=== PATIENT | female | born 1990 | race Caucasian/White ===

== ENCOUNTER 2024-02-26 09:47 | Emergency (ER) | payer OTHER ==
[~2024-02-26] VITALS: Ht 167.6 cm; Wt 91.0 kg
[2024-02-26 09:52] VITALS: O2SAT 99
[2024-02-26] MEDS: ONDANSETRON HCL 4MG/2ML INJ IV STA (10:43)
[2024-02-26] MEDS: KETOROLAC 30MG/ML VIAL IV STA (10:43)
[2024-02-26] MEDS: FAMOTIDINE 20MG/2ML VIAL IV STA (10:43)
[2024-02-26 10:44] LABS: CLARITY URINE CLEAR (CLEAR); COLOR URINE YELLOW (YELLOW); GLUCOSE URINE NEGATIVE (NEGATIVE); KETONES URINE 1+ (NEGATIVE); LEUKOCYTE ESTERASE URINE 3+ (NEGATIVE); NITRITE URINE NEGATIVE (NEGATIVE); OCCULT BLOOD URINE TRACE (NEGATIVE); PH URINE >=9.0 (4.5-8.0); PROTEIN URINE NEGATIVE (NEGATIVE); SPECIFIC GRAVITY URINE 1.015 (1.005-1.030); UROBILINOGEN URINE 0.2 E.U./dL (0.2-1.0)
[2024-02-26 10:52] LABS: BACTERIA URINE 2+; SQUAMOUS EPITHELIAL CELL URINE 2+ /lpf (RARE/1+); YEAST URINE NONE SEEN
[2024-02-26 10:56] LABS: HEMATOCRIT. 43.4 % (36.0-48.0); HEMOGLOBIN. 14.9 g/dL (12.0-16.0); MEAN CORPUSCULAR HEMOGLOBIN 29.6 pg (28.0-32.0); MEAN CORPUSCULAR HGB CONC 34.2 g/dL (31.0-37.0); MEAN CORPUSCULAR VOLUME 86.4 fL (81.0-99.0); MEAN PLATELET VOLUME 8.9 fl (7.4-10.4); PLATELET 277 x1000/uL (130-400); RED BLOOD CELL COUNT 5.02 mill/uL (4.2-5.4); RED CELL DISTRIBUTION WIDTH 13.2 % (11.6-14.6); WHITE BLOOD COUNT 13.2 x1000/uL (4.5-11.0)
[2024-02-26 10:57] LABS: DIFFERENTIAL COMMENT 1
[2024-02-26 11:01] LABS: HCG SCREEN NEGATIVE
[2024-02-26 11:05] LABS: CHLORIDE 102 mEq/L (98-107); POTASSIUM 3.7 mEq/L (3.5-5.1); SODIUM 135 mEq/L (136-145)
[2024-02-26 11:06] LABS: CALCIUM 9.5 mg/dL (8.7-10.4); CARBON DIOXIDE 24 mEq/L (21-32)
[2024-02-26 11:11] LABS: CREATININE 0.9 mg/dL (0.6-1.0); GLUCOSE 115 mg/dL (70-105)
[2024-02-26 11:12] LABS: UREA NITROGEN BLOOD 13 mg/dL (9-23)
[2024-02-26 11:13] LABS: ALANINE AMINOTRANSFERASE 14 IU/L (10-49); ALBUMIN 4.7 g/dL (3.2-4.8); ASPARTATE AMINOTRANSFERASE 14 IU/L (<34); BILIRUBIN DIRECT 0.2 mg/dL (<=3.0)
[2024-02-26 11:14] LABS: PROTEIN TOTAL 7.2 g/dL (6.0-8.3)
[2024-02-26 11:31] LABS: PLATELET ESTIMATE NORMAL
[2024-02-26] MEDS: ACETAMINOPHEN 325MG TABLET PO ONE (12:29)
[2024-02-26] MEDS ORDERED: KETOROLAC 30MG/ML VIAL IV ONE (12:30)
[2024-02-26] MEDS: DICYCLOMINE HCL 10MG CAPSULE PO ONE (12:45)
[2024-02-26] MEDS: MAGNESIUM/ALUMINUM HYDROXIDE/SIMETHICONE 30ML UDC PO ONE (13:11)
[2024-02-26] MEDS: FAMOTIDINE 20MG/2ML VIAL IV ONE (13:15)
[2024-02-26] MEDS ORDERED: IOHEXOL-350 100 ML BOTTLE ONE (13:31)
[2024-02-26] MEDS ORDERED: FAMO-135 MT (14:51)
[2024-02-26 15:15] VITALS: BP 124/72; PULSE 99; RESP 20; TEMP 97.8
== END 2024-02-26 15:16 | disposition home or self-care (01) ==
LOC: ER 10:17
DX: R10.9 Unspecified abdominal pain (principal); R11.2 Nausea with vomiting, unspecified
CPT/HCPCS: 99285; 74177; 96374; 76830; 76856; 96375; 80076; 80048; 81003; 81025; 84703; 83690; 85025; 85610; 36415; 96376; Q9967; J3490; J1885; J2405